=== PATIENT | female | born 1985 ===

== ENCOUNTER 2021-08-07 12:01 | Emergency (ER) | payer MEDICARE, MEDICAID ==
[~2021-08-07] VITALS: Ht 165.1 cm; Wt 77.1 kg
[2021-08-07 13:36] VITALS: BP 110/64
== END 2021-08-07 13:41 | disposition left against medical advice (07) ==
LOC: ER 12:01 → EDBD 12:01 → ER 13:41
DX: R56.9 Unspecified convulsions (principal); R11.2 Nausea with vomiting, unspecified; F17.210 Nicotine dependence, cigarettes, uncomplicated
CPT/HCPCS: 93005